=== PATIENT | male | born 1970 | race Caucasian/White ===

== ENCOUNTER → 2023-07-14 12:04 | Outpatient (REF) | payer OTHER, SELFPAY | LOC: RAD 12:04 | PROVIDERS: ATTENDING PHYSICIAN Physician Assistant Medical | DX: R06.02 Shortness of breath (principal); R06.2 Wheezing | CPT/HCPCS: 71046 ==

== ENCOUNTER → 2024-02-06 06:31 | Day surgery (SDC) | payer OTHER, SELFPAY | LOC: GI 06:31 | PROVIDERS: ATTENDING PHYSICIAN Internal Medicine Gastroenterology | DX: Z12.11 Encounter for screening for malignant neoplasm of colon (principal); D12.3 Benign neoplasm of transverse colon; K56.2 Volvulus; K64.0 First degree hemorrhoids | CPT/HCPCS: 45385; 88305 ==

== ENCOUNTER → 2024-04-01 07:40 | Outpatient (REF) | payer OTHER, SELFPAY | LOC: RSP 07:40 | PROVIDERS: ATTENDING PHYSICIAN Physician Assistant Medical | DX: J45.40 Moderate persistent asthma, uncomplicated (principal); R06.02 Shortness of breath | CPT/HCPCS: 94727; 94729; 88738; 94010 ==

== ENCOUNTER 2024-04-23 06:21 | Day surgery (SDC) | payer OTHER, SELFPAY ==
[2024-04-23 09:34] VITALS: BMI 45.5
[2024-04-23 09:39] VITALS: BMI 45.5
[2024-04-23 10:08] VITALS: BP 113/72
[2024-04-23 12:03] VITALS: BP 113/79
[2024-04-23 12:15] VITALS: BP 117/77
[2024-04-23 12:30] VITALS: BP 115/64
== END 2024-04-23 12:55 | disposition home or self-care (01) ==
LOC: GI 06:21
PROVIDERS: ATTENDING PHYSICIAN Internal Medicine Gastroenterology
DX: Z09 Encounter for follow-up examination after completed treatment for conditions other than malignant neoplasm (principal); K64.0 First degree hemorrhoids; Q43.8 Other specified congenital malformations of intestine; Z86.0100 Personal history of colon polyps, unspecified
CPT/HCPCS: 45378